=== PATIENT | male | born 1950 | race Caucasian/White ===

== ENCOUNTER → 2020-02-05 | Outpatient (CLI) | payer OTHER ==
[~2020-02-05] MED LIST: ACETYLCYST1000 MG/10 PO; ALLOPURINOL 10100 M1 PO; ASPIRIN EC81 M1 PO; ASPIRIN325 PO; EFFIENT10 MG PO; FENOFIBRATE160 MG PO; FISH OIL SOFTG1 EACH PO; GLUCOPHAGE500 MG PO; HCTZ PO; IMDUR 60 MG TAB60 M1 PO; JANUVIA100 MG PO; LIPITOR80 MG PO; LOTREL 5-40 MG1 EACH PO; MOBIC7.5 MG PO; NIACIN 100MG T100 M1 PO; NITROGLYCERIN0.4 MG SL; PLAVIX 75 MG TA75 MG PO; TOPROL XL50 MG PO
== END ==
LOC: SJCVCIMAG 07:58
DX: I70.203 Unspecified atherosclerosis of native arteries of extremities, bilateral legs (principal)

== ENCOUNTER → 2020-02-10 | Outpatient (CLI) | payer OTHER ==
[~2020-02-10] MED LIST changes: +BYSTOLIC10 MG PO; +CRESTOR40 MG PO; +DIAZEPAM 5 MG5 M1 PO; +DORYX MPC120 MG PO; +GLIPIZIDE 10 MG10 MG PO; +GLUCOTROL5 MG PO; +JARDIANCE10 MG PO; +KEFLEX500 M2 PO; +KRILL OIL 3501 EACH PO; +KRILL OIL500 MG PO; +LANTUS SUBQ; +LEVO-T25 MCG PO; +LOTREL 10-40 M1 EACH PO; +MULTIVITAMINS1 EAC7 PO; +PROTONIX40 M4 PO; +ZYLOPRIM300 MG PO
== END ==
LOC: SJCVC 13:15
DX: I65.23 Occlusion and stenosis of bilateral carotid arteries (principal); E11.51 Type 2 diabetes mellitus with diabetic peripheral angiopathy without gangrene; E78.00 Pure hypercholesterolemia, unspecified; R06.02 Shortness of breath; Z79.4 Long term (current) use of insulin

== ENCOUNTER → 2020-02-19 | Outpatient (CLI) | payer OTHER ==
[~2020-02-19] VITALS: Ht 180.3 cm; Wt 110.2 kg
[~2020-02-19] MED LIST changes: -DORYX MPC120 MG PO; -GLUCOTROL5 MG PO; -JARDIANCE10 MG PO; -KEFLEX500 M2 PO; -KRILL OIL500 MG PO; -LANTUS SUBQ; -LOTREL 10-40 M1 EACH PO; -ZYLOPRIM300 MG PO
[2020-02-19 08:27] VITALS: BP 157/86
[2020-02-19 08:34] LABS: ABSOLUTE NEUTROPHILS 3.4 thou/uL (1.4-8.2); BASOPHILS 0.5 % (0.0-2.0); HEMATOCRIT 51.7 % (42.0-52.0); HEMOGLOBIN 17.3 gm/dL (14.0-18.0); LYMPHOCYTES 32.3 % (24.0-44.0); MCH 30.5 pg (26.0-34.0); MCHC 33.5 g/dL (28.0-37.0); MCV 90.9 fL (80.0-100.0); MONOCYTES 9.3 % (1.0-8.0); PLATELET COUNT 253 thou/uL (150-400); POLYS 52.9 % (36.0-66.0); RBC 5.69 mil/uL (4.50-6.00); RDW 14.6 % (10.5-14.5); WBC 6.4 thou/uL (4.0-11.0)
[2020-02-19 08:59] LABS: CALCIUM 9.6 mg/dL (8.5-10.1); CREATININE 1.2 mg/dL (0.7-1.3); POTASSIUM 4.1 mmol/L (3.5-5.1)
--- NOTE | 2020-02-19 09:53 | EKG ---
[facility] [place] [address] ELECTROCARDIOGRAM REPORT Name: CARYN CALERO Room #: REG [facility]#: [id number] Admission: 02/19/20 Attend Phys: Jhon Jaquez MD, Discharge: Date of : 50 Report #: [id number] THIS REPORT FOR: cc: IMTIAZ - No family physician/PCP FAM - No family physician/PCP Bib Meeks MD [facility] THIS REPORT FOR: //name// [facility] Test Date: 2020-02-19 Test Time: 08:26:25 Pat Name: CARYN CALERO Department: Room: Gender: Packer Fuser: [facility] : 1950 Requested By: Jhon Jaquez Order Number: [id number] MD: Bib Meeks Measurements Intervals [place] Rate: 61 P: 50 MS: 172 QRS: 25 QRSD: 88 T: 19 QT: 402 QTc: 405 Interpretive Statements Sinus rhythm Normal tracing Compared to ECG 09/29/2010 08:30:57 No significant changes Electronically Signed On 02-19-2020 9:52:18 CDT by Bib Meeks [email or web address] <ELECTRONICALLY SIGNED> By: Bib Meeks MD, [facility] 02/19/20 0952 5 5 Bib Meeks MD, [facility] /EPI
[2020-02-19 13:21] LABS: ABSOLUTE NEUTROPHILS 5.4 thou/uL (1.4-8.2); BASOPHILS 0.7 % (0.0-2.0); EOSINOPHILS 0.6 % (0.0-3.0); HEMATOCRIT 53.8 % (42.0-52.0); LYMPHOCYTES 13.4 % (24.0-44.0); MCH 30.1 pg (26.0-34.0); MCHC 33.5 g/dL (28.0-37.0); MCV 89.9 fL (80.0-100.0); MONOCYTES 1.4 % (1.0-8.0); PLATELET COUNT 256 thou/uL (150-400); POLYS 83.9 % (36.0-66.0); RBC 5.98 mil/uL (4.50-6.00); RDW 14.7 % (10.5-14.5); WBC 6.5 thou/uL (4.0-11.0)
[2020-02-19 13:34] LABS: CALCIUM 9.9 mg/dL (8.5-10.1); CREATININE 1.1 mg/dL (0.7-1.3); POTASSIUM 4.3 mmol/L (3.5-5.1)
[2020-02-19 13:40] LABS: ALBUMIN 4.2 g/dL (3.4-5.0); TOTAL BILIRUBIN 0.9 mg/dL (<0.1-1.0); TOTAL PROTEIN 7.5 g/dL (6.4-8.2)
[2020-02-19 13:41] LABS: PROTIME 10.5 Seconds (9.3-11.4)
--- NOTE | 2020-02-19 14:00 | CATHLAB ---
[facility] [place] [address] INVASIVE PROCEDURE REPORT Name: GALILEACARYN MORALES Room #: REG GUSTAVO Miguel.#: [id number] Admission: 02/19/20 Attend Phys: Jhon Jaquez MD, Discharge: Date of : 50 Report #: [id number] THIS REPORT FOR: cc: FAM - No family physician/PCP FAM - No family physician/PCP Jhon Jaquez MD [facility] ~ APPROVED REPORT Study performed: 02/19/2020 11:23:34 Patient Details Patient Status: Out-Patient Room #: The patient is a 70 year-old male Event Personnel Jhon Jaquez Reactor Kettle Operator, April Barahona RN RN, Poonam Apodaca RTR, Sam Tucker Ja'net RTR Monitor Procedures Performed Art Access - R femoral artery* Left Heart Cath w/or w/o Coronaries [id number] [facility] [address] Initial Mod Sed Same Phys/QHP Gr5y [id number] 22083 Mod Sed Same Phys/QHP Ea 950318 Hemostasis w/ Mynx Indication Chest pain Procedure Narrative The patient was brought electively to the Cardiac Catheterization Laboratory and was prepped and draped in a sterile manner. A SHEATH BRITE-TIP 6F X 11CM ([id number]) sheath was inserted into the RFA^. Coronary angiography was performed using coronary diagnostic catheters. The right coronary system was accessed and visualized with a JR4 catheter. The left coronary system was accessed and visualized with a JL4 catheter. The left ventricle was accessed and visualized with a PIGTAIL catheter. Closure device was deployed with a Fr MYNXGRIP 6/7F [id number]. The patient tolerated the procedure well and there were no complications associated with the procedure. There was no hematoma. Intraoperative Conscious Sedation Sedation start time: 11:31 Case end Time: 12:05 Fentanyl 50 mcg Versed 1 mg [facility] [place] [address] INVASIVE PROCEDURE REPORT Name: CARYN CALERO Room #: REG [place]#: [id number] Admission: 02/19/20 Attend Phys: Jhon Jaquez, Discharge: Date of : 50 Report #: [id number] Fluoro Time: 1.30 minutes Dose: DAP 5227.60 cGycm2 676 mGy Contrast Type and Amount: Omnipaque 110 ml Hemodynamics The aortic pressure is 168/81 mmHg with a mean of 116 mmHg. The left ventricular pressure is 168/14 mmHg with a mean of mmHg. The left ventricular end diastolic pressure is 33 mmHg. PCI Technique Lesion Percutaneous coronary intervention was performed on the Superficial Femoral. Conclusion #1. Left main is exhibiting a 70% distal lesion as it extends into the and gives off the LAD and circumflex. The ostial left main is widely patent. #2 the proximal LAD is mildly diseased there is an eccentric lesion of 40% just off the left main and then mild diffuse disease this extends around the apex there is heavy proximal calcification. No other significant occlusive disease #3 circumflex OM proximal calcification nondominant mild irregularity however the ostial circumflex has an eccentric 70 to 80% lesion which extends into the distal left main lesion. #4 dominant right also heavy calcification with 30 to 40% irregularities and then there is a distal eccentric lesion approaching 70 to 75% with a preserved PDA. Recommendations and plan: Continue aggressive risk factor modification. We will have and obtain CV surgical consultation. Based on this significant left main lesion involving the ostium of the circumflex. Heavily calcified proximal vessels and preserved distal targets Patient will be best served with revascularization by bypass. We will continue with his current regimen. He has stable anginal symptoms. Recent peripheral stent placed today would presumably wait on coronary revascularization 2+ weeks. Would like to use 14 days of Plavix for the SFA stent. <ELECTRONICALLY SIGNED> By: Jhon Jaquez MD, FACC 02/19/20 1359 1359 1359 Jhon Jaquez MD, FACC /INF
[2020-02-19 15:24] LABS: URINE BILIRUBIN NEGATIVE (Negative); URINE BLOOD NEGATIVE (Negative); URINE CLARITY CLEAR; URINE COLOR YELLOW; URINE GLUCOSE-RANDOM* 2+ (Negative); URINE KETONES NEGATIVE (Negative); URINE LEUKOCYTES-REFLEX NEGATIVE (Negative); URINE NITRITE-REFLEX NEGATIVE (Negative); URINE PROTEIN (DIPSTICK) NEGATIVE (Negative); URINE UROBILINOGEN 0.2 E.U./dl (0.2-1.0)
--- NOTE | 2020-02-19 15:33 | 2DMMODE ---
[facility] [place] [address] 2 D/M-MODE ECHOCARDIOGRAM Name: GALILEACARYN MORALES Room #: REG GUSTAVO MiguelYuridia#: [id number] Admission: 02/19/20 Attend Phys: Jhon Jaquez MD, Discharge: Date of : 50 Report #: [id number] THIS REPORT FOR: cc: FAM - No family physician/PCP FAM - No family physician/PCP Bib Meeks MD [facility] ~ APPROVED REPORT Study performed: 02/19/2020 14:36:37 EXAM: Comprehensive 2D, Doppler, and color-flow Echocardiogram Patient Location: Out-Patient Room #: CVL Status: routine BSA: 2.30 HR: 106 bpm Rhythm: NSR Other Information Study Quality: Fair-s/p heart cath. Technically limited study due to obesity, lung and flat on back. Indications Pre-Op. CAD. Hx: Stents, HTN, HLP, DM, tobacco abuse. 2D Dimensions IVSd: 11.07 (7-11mm) LVOT Diam: 20.15 (18-24mm) LVDd: 45.79 mm PWd: 9.91 (7-11mm) LVDs: 34.11 (25-40mm) Aortic Root: 34.19 mm Volumes Left Atrial Volume (Systole) Single Plane 4CH: 64.09 mL Single Plane 2CH: 66.88 mL LA ESV Index: 30.00 mL/m2 Aortic Valve AoV Peak J Carlos.: 1.28 m/s AO Peak Gr.: 6.51 mmHg LVOT Max P.31 mmHg LVOT Max V: 0.91 m/s [facility] [address] [place] [address] 2 D/M-MODE ECHOCARDIOGRAM Name: CARYN CALERO Room #: REG [facility]#: [id number] Admission: 02/19/20 Attend Phys: Jhon Jaquez, Discharge: Date of : 50 Report #: [id number] Vmax: 2.27 cm2 Pulmonary Valve PV Peak J Carlos.: 1.20 m/s PV Peak Gr.: 5.74 mmHg Tricuspid Valve RAP Estimate: 5.00 mmHg Left Ventricle The left ventricle is normal size. There is normal LV segmental wall motion. There is normal left ventricular wall thickness. Left ventricular systolic function is normal. LVEF is 65%. This study is not technically sufficient to allow evaluation of the LV diastolic function. Right Ventricle Right ventricle is not well visualized. The right ventricular systolic function is normal. Atria The left atrium size is normal. The right atrium size is normal. Aortic Valve The aortic valve is normal in structure. No aortic regurgitation is present. There is no aortic valvular stenosis. Mitral Valve The mitral valve is normal in structure. There is no mitral valve regurgitation noted. No evidence of mitral valve stenosis. Tricuspid Valve The tricuspid valve is not well visualized. There is no tricuspid valve regurgitation noted. Unable to assess PA pressure. Pulmonic Valve Pulmonic valve is not well visualized. Great Vessels The aortic root is normal in size. IVC is normal in size and collapses >50% with inspiration. Pericardium There is no pericardial effusion. <Conclusion> [facility] [address] [place] [address] 2 D/M-MODE ECHOCARDIOGRAM Name: CARYN CALERO Room #: REG [facility]#: [id number] Admission: 02/19/20 Attend Phys: Jhon Jaquez, Discharge: Date of : 50 Report #: [id number] Technically limited study Left ventricular systolic function is normal. There is normal LV segmental wall motion. LVEF is 65%. The aortic valve is normal in structure. No aortic regurgitation or stenosis. The mitral valve is normal in structure. No mitral valve regurgitation Unable to assess pulmonay artery pressure. There is no pericardial effusion. <ELECTRONICALLY SIGNED> By: Bib Meeks MD, FACC 02/19/201531 31 31 Bib Meeks MD, FACC /INF
[2020-02-19 23:07] LABS: GLYCOHEMOGLOBIN (HGB A1C) 6.4 % (4.8-5.6)
--- NOTE | 2020-02-21 15:35 | HC ---
[facility] [place] [address] CONSULTATION Name: CARYN CALERO Room #: REG GUSTAVO MiguelYuridia#: [id number] Admission: 02/19/20 Attend Phys: Jhon Jaquez MD, Discharge: Date of : 50 Report #: [id number] THIS REPORT FOR: cc: IMTIAZ - No family physician/PCP IMTIAZ - No family physician/PCP Caryn Alejandro MD ~ CC: [facility] physician/PCP Jhon Jaquez DATE OF SERVICE: 02/19/2020 We were asked by Dr. Jaquez to see the patient. HISTORY OF PRESENT ILLNESS: The patient is a 70-year-old with exertional shortness of breath. The patient also has some lower extremity claudication. Cardiac catheterization today demonstrates left main and 3-vessel coronary artery disease. There is a 70% left main stenosis along with 30% LAD, 80% circumflex and 70% right coronary artery stenosis. The patient also had a stent placed in a left superficial femoral artery for an 80% narrowing. The patient has been started on Plavix for this. PAST MEDICAL HISTORY: Significant for diabetes mellitus, hypertension, and elevated cholesterol. The patient is also a former smoker. HOME MEDICATIONS: Include allopurinol, Lotrel, aspirin, Bystolic, Valium, ____, glipizide, isosorbide, Krill oil, levothyroxine, multivitamins, Protonix, Crestor, and nitroglycerin. ALLERGIES: ADHESIVE CAUSES AN ITCH AND IODINE CAUSES HIVES. FAMILY HISTORY: Mother of heart failure in her 90s. Father of a stroke in his 70s. 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 REVIEW OF SYSTEMS: GENERAL: No problems with fever, generalized fatigue. HEENT: EYES: Wears glasses. Denies headache, hearing issues. No sinus problems. PULMONARY: Short of breath on exertion. CARDIAC: Denies palpitations or angina. SKIN: No rash or infection. ENDOCRINE: No goiter, no tremor. [facility] [address] [place] [address] CONSULTATION Name: GALILEACARYN Room #: REG [facility].#: [id number] Admission: 02/19/20 Attend Phys: Jhon Jaquez MD, Discharge: Date of : 50 Report #: [id number] GASTROINTESTINAL: No nausea, vomiting, diarrhea, or blood. GENITOURINARY: No urgency, frequency, or blood. NEUROLOGIC: No motor or sensory dysfunction. PSYCHIATRIC: No depression, no anxiety. MUSCULOSKELETAL: Does have scattered joint pain; specifically in the hips, right worse than left. IMMUNOLOGIC: No lupoid rash. No rheumatoid arthritis issues. PHYSICAL EXAMINATION: CONSTITUTIONAL: The patient is lying in bed after cardiac cath, seems comfortable. VITAL SIGNS: Blood pressure 162/89, heart rate 100. HEENT: No scleral icterus, no arcus. NECK: No mass, no bruit. CHEST: Clear to auscultation. HEART: Rhythm regular, no murmur. Somewhat barrel chested. ABDOMEN: Soft, no mass, no tenderness. EXTREMITIES: No clubbing, cyanosis or edema; 1+ posterior tibial pulse bilaterally. No obvious saphenous vein issues. NEUROLOGIC: No motor or sensory dysfunction. MUSCULOSKELETAL: No obvious bone or joint asymmetry or deformity. ASSESSMENT: The patient has a left main and 3-vessel coronary artery disease with diabetes mellitus. We have recommended coronary artery bypass surgery. Risks and details of this were discussed. Options and alternatives were reviewed. Risks include but are not limited to bleeding, infection, anesthesia risks, heart problems, lung problems, stroke and . The patient understands all of this and wishes to proceed. We will discuss the Plavix with Dr. Chin, but we will schedule surgery when he is comfortable discontinuing that medication. Thank you for the consult. <ELECTRONICALLY SIGNED> By: Caryn Alejandro MD 02/21/20 1535 1344 1918 Caryn Alejandro MD /nt
== END | disposition home or self-care (01) ==
LOC: CATH 07:52
PROVIDERS: Internal Medicine Cardiovascular Disease; Surgery Vascular Surgery
DX: R07.9 Chest pain, unspecified (principal); Z91.041 Radiographic dye allergy status; I25.10 Atherosclerotic heart disease of native coronary artery without angina pectoris; I70.212 Atherosclerosis of native arteries of extremities with intermittent claudication, left leg; I70.1 Atherosclerosis of renal artery; I10 Essential (primary) hypertension; I65.23 Occlusion and stenosis of bilateral carotid arteries; E78.5 Hyperlipidemia, unspecified; E11.9 Type 2 diabetes mellitus without complications; Z98.890 Other specified postprocedural states; Z79.899 Other long term (current) drug therapy; Z79.4 Long term (current) use of insulin

== ENCOUNTER → 2020-03-11 | Outpatient (CLI) | payer OTHER ==
[~2020-03-11] VITALS: Ht 180.3 cm; Wt 108.9 kg
[~2020-03-11] MED LIST changes: +BENICAR20 MG PO; +DORYX MPC120 MG PO; +FERREX 150 PLU1 EAC1 PO; +GLUCOTROL5 MG PO; +JARDIANCE10 MG PO; +KEFLEX500 M2 PO; +KRILL OIL500 MG PO; +LANTUS SUBQ; +LOTREL 10-40 M1 EACH PO; +PACERONE 200 M200 M1 PO; +ZYLOPRIM300 MG PO
== END ==
LOC: LAB 10:30 → OR 03-12 09:44 → EDSTATUS 03-12 15:14 → PRE 03-12 15:35 → EDSTATUS 03-26 11:24 → PRE 03-26 11:44
PROVIDERS: ATTEND Surgery Vascular Surgery
DX: I25.10 Atherosclerotic heart disease of native coronary artery without angina pectoris (principal)

== ENCOUNTER → 2020-03-11 | Outpatient (CLI) | payer OTHER ==
[~2020-03-11] MED LIST changes: -BENICAR20 MG PO; -DORYX MPC120 MG PO; -FERREX 150 PLU1 EAC1 PO; -PACERONE 200 M200 M1 PO
== END ==
LOC: SJCVCIMAG 11:34
DX: I70.202 Unspecified atherosclerosis of native arteries of extremities, left leg (principal); Z95.820 Peripheral vascular angioplasty status with implants and grafts; Z87.891 Personal history of nicotine dependence

== ENCOUNTER 2020-04-15 10:47 | Inpatient (IN) | payer OTHER ==
[~2020-04-15] VITALS: Ht 180.3 cm; Wt 112.0 kg
[~2020-04-15 10:47] MED LIST changes: +DORYX MPC120 MG PO
[2020-04-15 11:40] LABS: ABSOLUTE NEUTROPHILS 3.8 thou/uL (1.4-8.2); BASOPHILS 1.1 % (0.0-2.0); EOSINOPHILS 4.1 % (0.0-3.0); HEMATOCRIT 51.8 % (42.0-52.0); HEMOGLOBIN 17.4 gm/dL (14.0-18.0); LYMPHOCYTES 31.1 % (24.0-44.0); MCH 30.7 pg (26.0-34.0); MCHC 33.7 g/dL (28.0-37.0); MCV 91.2 fL (80.0-100.0); MONOCYTES 8.7 % (1.0-8.0); PLATELET COUNT 242 thou/uL (150-400); RBC 5.68 mil/uL (4.50-6.00); RDW 14.2 % (10.5-14.5)
[2020-04-15 11:51] LABS: APTT 32.7 Seconds (24.5-32.8); PROTIME 10.6 Seconds (9.3-11.4)
[2020-04-15 11:53] LABS: ALBUMIN 4.1 g/dL (3.4-5.0); CALCIUM 9.2 mg/dL (8.5-10.1); CREATININE 1.3 mg/dL (0.7-1.3); POTASSIUM 4.5 mmol/L (3.5-5.1); TOTAL BILIRUBIN 0.8 mg/dL (<0.1-1.0)
[2020-04-15 12:47] LABS: URINE BILIRUBIN NEGATIVE (Negative); URINE BLOOD NEGATIVE (Negative); URINE CLARITY CLEAR; URINE COLOR YELLOW; URINE GLUCOSE-RANDOM* 3+ (Negative); URINE KETONES NEGATIVE (Negative); URINE LEUKOCYTES-REFLEX NEGATIVE (Negative); URINE NITRITE-REFLEX NEGATIVE (Negative); URINE PROTEIN (DIPSTICK) NEGATIVE (Negative); URINE UROBILINOGEN 0.2 E.U./dl (0.2-1.0)
[2020-04-16 00:07] LABS: GLYCOHEMOGLOBIN (HGB A1C) 6.4 % (4.8-5.6)
--- NOTE | 2020-04-16 07:59 | EKG ---
[facility] [place] [address] ELECTROCARDIOGRAM REPORT Name: CARYN CALERO Room #: PRE IN M..#: [id number] Admission: Attend Phys: Caryn Alejandro MD Discharge: Date of : 50 Report #: [id number] THIS REPORT FOR: cc: BRENNAN FARNSWORTH Physician not on staff Bib Meeks MD [facility] ~ THIS REPORT FOR: //name// [facility] Test Date: 2020-04-15 Test Time: 11:37:28 Pat Name: CARYN CALERO Department: Room: Gender: M Wine Specialist: TATIANA : 1950 Requested By: Caryn Alejandro Order Number: [id number] MD: Bib Meeks Measurements Intervals [place] Rate: 58 P: 72 [place]: 167 QRS: 49 QRSD: 96 T: 38 QT: 420 QTc: 413 Interpretive Statements Sinus bradycardia Otherwise normal tracing Compared to ECG 02/19/2020 08:26:25 No significant changes Electronically Signed On 04-16-2020 7:58:05 CDT by Bib Meeks [email or web address] <ELECTRONICALLY SIGNED> By: Bib Meeks MD, [facility] 04/16/20 0758 1137 113 Bib Meeks MD, [facility] /EPI
[2020-04-24] VITALS (29 sets, daily range): BP systolic 75–161; BP diastolic 43–83
[2020-04-24 13:08] LABS: HEMATOCRIT 33.6 % (42.0-52.0); HEMOGLOBIN 11.4 gm/dL (14.0-18.0); MCH 30.7 pg (26.0-34.0); MCHC 33.9 g/dL (28.0-37.0); MCV 90.6 fL (80.0-100.0); RBC 3.71 mil/uL (4.50-6.00); RDW 14.1 % (10.5-14.5)
[2020-04-24 13:21] LABS: APTT 32.9 Seconds (24.5-32.8); INR 1.6
[2020-04-24 13:51] LABS: POC BE -3 mmol/L (-2.0 to +3.0); POC CA IONIZED 4.7 mg/dL (4.5-5.3); POC GLUCOSE 130 mg/dL (70-99); POC HCO3 22.6 mmol/L (22.0-26.0); POC HEMOGLOBIN 13.6 g/dL (14.0-18.0); POC POTASSIUM 4.7 mmol/L (3.5-5.1); POC SODIUM 138 mmol/L (136-145); POC pCO2 42.4 mmHg (35.0-45.0); POC pH 7.334 (7.360-7.450)
[2020-04-24 13:51] LABS: POC BE -1 mmol/L (-2.0 to +3.0); POC CA IONIZED 4.3 mg/dL (4.5-5.3); POC GLUCOSE 137 mg/dL (70-99); POC HCO3 24.2 mmol/L (22.0-26.0); POC HEMOGLOBIN 11.6 g/dL (14.0-18.0); POC SODIUM 138 mmol/L (136-145); POC pCO2 42.5 mmHg (35.0-45.0); POC pH 7.364 (7.360-7.450)
[2020-04-24 13:51] LABS: POC BE -1 mmol/L (-2.0 to +3.0); POC CA IONIZED 4.3 mg/dL (4.5-5.3); POC GLUCOSE 170 mg/dL (70-99); POC HCO3 23.8 mmol/L (22.0-26.0); POC HEMOGLOBIN 10.2 g/dL (14.0-18.0); POC POTASSIUM 5.8 mmol/L (3.5-5.1); POC SODIUM 136 mmol/L (136-145); POC pCO2 41.3 mmHg (35.0-45.0); POC pH 7.369 (7.360-7.450)
[2020-04-24 13:51] LABS: POC BE -3 mmol/L (-2.0 to +3.0); POC CA IONIZED 4.9 mg/dL (4.5-5.3); POC GLUCOSE 147 mg/dL (70-99); POC HCO3 22.3 mmol/L (22.0-26.0); POC HEMOGLOBIN 14.3 g/dL (14.0-18.0); POC POTASSIUM 4.4 mmol/L (3.5-5.1); POC SODIUM 139 mmol/L (136-145); POC pCO2 38.1 mmHg (35.0-45.0); POC pH 7.376 (7.360-7.450)
[2020-04-24 13:52] LABS: POC BE -3 mmol/L (-2.0 to +3.0); POC CA IONIZED 4.2 mg/dL (4.5-5.3); POC GLUCOSE 147 mg/dL (70-99); POC HCO3 22.5 mmol/L (22.0-26.0); POC HEMOGLOBIN 10.9 g/dL (14.0-18.0); POC POTASSIUM 5.3 mmol/L (3.5-5.1); POC SODIUM 136 mmol/L (136-145); POC pCO2 37.5 mmHg (35.0-45.0); POC pH 7.386 (7.360-7.450)
[2020-04-24 13:52] LABS: POC BE -4 mmol/L (-2.0 to +3.0); POC CA IONIZED 4.8 mg/dL (4.5-5.3); POC GLUCOSE 162 mg/dL (70-99); POC HCO3 21.5 mmol/L (22.0-26.0); POC HEMOGLOBIN 10.9 g/dL (14.0-18.0); POC POTASSIUM 4.9 mmol/L (3.5-5.1); POC SODIUM 139 mmol/L (136-145); POC pCO2 37.4 mmHg (35.0-45.0); POC pH 7.369 (7.360-7.450)
[2020-04-24 13:52] LABS: POC BE -6 mmol/L (-2.0 to +3.0); POC CA IONIZED 4.7 mg/dL (4.5-5.3); POC GLUCOSE 137 mg/dL (70-99); POC HCO3 19.7 mmol/L (22.0-26.0); POC HEMOGLOBIN 11.2 g/dL (14.0-18.0); POC POTASSIUM 4.2 mmol/L (3.5-5.1); POC SODIUM 139 mmol/L (136-145); POC pCO2 36.8 mmHg (35.0-45.0); POC pH 7.338 (7.360-7.450)
[2020-04-24 14:31] LABS: BE(vivo) -6.1 mmol/L (-2 to +3); HCO3 19.4 mmol/L (22.0-26.0); PCO2 38.3 mmHg (35.0-45.0); PO2 63.2 mmHg (80.0-100.0); pH 7.323 (7.360-7.450); sO2 90.7 % (92.0-98.0)
[2020-04-24 14:38] LABS: HEMATOCRIT 37.1 % (42.0-52.0); HEMOGLOBIN 12.3 gm/dL (14.0-18.0); MCH 30.3 pg (26.0-34.0); MCHC 33.1 g/dL (28.0-37.0); MCV 91.3 fL (80.0-100.0); RBC 4.06 mil/uL (4.50-6.00); RDW 13.9 % (10.5-14.5); WBC 12.2 thou/uL (4.0-11.0)
[2020-04-24 14:50] LABS: CALCIUM 7.5 mg/dL (8.5-10.1); CREATININE 1.4 mg/dL (0.7-1.3); MAGNESIUM 2.4 mg/dL (1.8-2.4); POTASSIUM 4.3 mmol/L (3.5-5.1)
[2020-04-24 14:53] LABS: APTT 28.9 Seconds (24.5-32.8); INR 1.2
--- NOTE | 2020-04-24 15:00 | NUR ---
ALBUMIN HUNG FOR BP IN THE 90'S, EKG DONE AT BEDSIDE AT 1455, BP UP AND CARDENE STARTED BUT TURNED OFF BP BACK INTO THE 90'S. ALBUMIN RATE INCREASED.
--- NOTE | 2020-04-24 15:39 | NUR ---
70 YEAR OLD MALE ADMITTED INTO ICU ROOM 248 POST CABG X5, ACCOMPANIED BY OR CREW AND DR PIKE, AND DR BOND. ATTACHED TO VILGIANT MONITOR AND LICENSING REPRESENTATIVE. PLACED ON VENT. CHEST TUBES ATTACHED TO CONTINOUS SUCTION, WITH LESS THAN 15 ML OF DRAINAGE NOTED. SWAN AT 57CM ROBERT. OG AT 47 AT THE LIP, PLACEMENT VARIFIED BY XRAY AND AUSCULATION. ETT 8.0 23CM AT THE LIP. GALINA HUGGER APPLIED. ASSESSMENT COMPLETED.
--- NOTE | 2020-04-24 16:00 | NUR ---
SECOND ALBUMIN INFUSED AND BP IMPROVED. PATIENT RESPONSIVE AND FOLLOWING SIMPLE COMMANDS. CALLED HIS LEONARDO AT 1550, AND UPDATED HER TO HIS STATUS AND POC, HAS CODE TO CALL IN FOR INFORMATION. O2 SAT IMPROVED AND CI GREATER THAN 2.0.
[2020-04-24 18:49] LABS: CALCIUM 7.3 mg/dL (8.5-10.1); CREATININE 1.2 mg/dL (0.7-1.3); MAGNESIUM 2.2 mg/dL (1.8-2.4); POTASSIUM 4.3 mmol/L (3.5-5.1)
--- NOTE | 2020-04-24 19:00 | NUR ---
PATIENT PROGRESSING TOWARDS OUTCOME GOALS EVIDENT BY AWAKE AND FOLLOWING COMMMANDS, CALM AND COOPERATIVE. MONITOR NSR WITH RARE PVC NOTED. CI GREATER THAN 2.O, THIRD ALBUMIN INFUSING BP IN THE 90'S. CHEST TUBE DRAINAGE LESS THAN 30 ML/HR. O2 SAT IN THE UPPER 90'S. GUEVARA PATENT. NM DRAINAGE FROM OG TUBE. AMIODARONE INFUSING, DR BOND IN AT [address] TAYLOR IN AT 1720, UPDATED TO STATUS.
[2020-04-24 19:05] LABS: BE(vivo) -6.6 mmol/L (-2 to +3); HCO3 18.2 mmol/L (22.0-26.0); PCO2 34.2 mmHg (35.0-45.0); pH 7.345 (7.360-7.450); sO2 97.7 % (92.0-98.0)
[2020-04-24 20:17] LABS: BE(vivo) -6.4 mmol/L (-2 to +3); HCO3 18.2 mmol/L (22.0-26.0); PCO2 33.4 mmHg (35.0-45.0); PO2 64.7 mmHg (80.0-100.0); pH 7.354 (7.360-7.450)
[2020-04-25] VITALS (26 sets, daily range): BP systolic 111–143; BP diastolic 52–81
[2020-04-25 05:37] LABS: HEMATOCRIT 34.5 % (42.0-52.0); HEMOGLOBIN 11.7 gm/dL (14.0-18.0); MCH 30.9 pg (26.0-34.0); MCV 90.8 fL (80.0-100.0); RBC 3.8 mil/uL (4.50-6.00); RDW 14.2 % (10.5-14.5); WBC 7.4 thou/uL (4.0-11.0)
[2020-04-25 05:41] LABS: CALCIUM 7.6 mg/dL (8.5-10.1); CREATININE 1.1 mg/dL (0.7-1.3); MAGNESIUM 2.3 mg/dL (1.8-2.4); POTASSIUM 3.9 mmol/L (3.5-5.1)
--- NOTE | 2020-04-25 05:44 | NUR ---
Pt is A/O x 4, he AGUIRRE's, has rested at times through the night, and has been treated effectively with prn pain medication. His hemodynamics have been stable, with mild hypertension noted, (cardene is off at this time). Pt was extubated last night at 2030, and has been titrated down to 8 L/m per Hi Lázaro, (from 60% on the face shield), sats are 95% and above, no SOA, taking good deep breaths/coughing, and a respiratory rate of 12-14 bpm. Chest tube sites are intact, 310 ml's total of mediastinal drainage since surgery and 120 ml's of pleural. Pt is taking PO fluids well, no C/O nausea voiced. Mclaughlin cathter is patent, draining 1100 ml's of dark yellow urine. Pt started an insulin infusion, at approx 2100, currently at 6 units/hr, (at that rate since 0) and last BGL was 128. Pt is progressing toward POC goals. The bed is in the low/locked position, the call light is within reach, the siderails are up x 4, and he will be transferred to the recliner.
--- NOTE | 2020-04-25 08:13 | NUR ---
ASSUMED CARE FROM NIGHT NURSE AT O7OO. PATIENT ASSISTED TO CHAIR WITHOUT INCIDENT. HYDROCODONE GIVEN FOR PAIN MANAGEMENT. ARTERIAL LINE BP ELEVATED, CARDENE RESTARTED. O2 TAPPERED TO 4L/HFNC. OT IN TO WORK WITH PATIENT. INSULIN DRIP CONTINUES. CHEST TUBE DRAINAGE NOTED WITH POSITION CHANGE, SEROUS SANG IN APPEARANCE. PATIENT UPDATED TO THE POC. WILL CONTINUE TO MONITOR.
--- NOTE | 2020-04-25 08:30 | NUR ---
SPOKE WITH LEONARDO, UPDATED TO THE POC AND STATUS. PATIENT THEN SPOKE WITH .
--- NOTE | 2020-04-25 09:33 | EKG ---
[facility] [place] [address] ELECTROCARDIOGRAM REPORT Name: CARYN CALERO Room #: 248-P ADM IN M.R.#: [id number] Admission: 04/24/20 Attend Phys: Caryn Alejandro MD Discharge: Date of : 50 Report #: [id number] THIS REPORT FOR: cc: BRENNAN FARNSWORTH Physician not on staff Nick Castanon MD ~ THIS REPORT FOR: //name// [facility] Test Date: 2020-04-24 Test Time: 14:55:52 Pat Name: CARYN CALERO Department: Room: 248 Gender: M Button Cutter: Cecilio DUVAL : 1950 Requested By: Gonsalo Brandon Order Number: [id number] MD: Nick Castanon Measurements Intervals [place] Rate: 92 P: 74 [place]: 207 QRS: 81 QRSD: 93 T: 41 QT: 379 QTc: 469 Interpretive Statements Sinus rhythm Borderline prolonged NJ interval Borderline right axis deviation Borderline low voltage, extremity leads Compared to ECG 04/15/2020 11:37:28 Sinus bradycardia no longer present Electronically Signed On 04-25-2020 9:31:13 CDT by Nick Castanon [email or web address] <ELECTRONICALLY SIGNED> By: Nick Castanon MD 04/25/20 0931 1455 1455 Nick Castanon MD /EPI
--- NOTE | 2020-04-25 09:44 | EKG ---
[facility] [place] [address] ELECTROCARDIOGRAM REPORT Name: MATEUSSOTEROCARYN PEARSON Room #: 248-P ADM IN M.R.#: [id number] Admission: 04/24/20 Attend Phys: Caryn Alejandro MD Discharge: Date of : 50 Report #: [id number] THIS REPORT FOR: cc: BRENNAN FARNSWORTH Physician not on staff Nick Castanon MD ~ THIS REPORT FOR: //name// [facility] Test Date: 2020-04-25 Test Time: 07:33:04 Pat Name: CARYN CALERO Department: Room: 248 P Gender: M Technical Clerk: Cecilio DUVAL : 1950 Requested By: Gonsalo Brandon Order Number: [id number] MD: Nick Castanon Measurements Intervals [place] Rate: 75 P: 66 [place]: 186 QRS: 39 QRSD: 89 T: 30 QT: 397 QTc: 444 Interpretive Statements Sinus rhythm Inferior infarct, old Compared to ECG 04/15/2020 11:37:28 Myocardial infarct finding now present Sinus bradycardia no longer present Electronically Signed On 04-25-2020 9:41:59 CDT by Nick Castanon [email or web address] <ELECTRONICALLY SIGNED> By: Nick Castanon MD 04/25/20 0941 0733 0733 Nick Castanon MD /EPI
--- NOTE | 2020-04-25 12:00 | NUR ---
PATIENT UP IN THE CHAIR UNTIL 1100 AND RETURNED TO BED. SWAN FERNANDA DC'D AND INTRODUCER REMAINS IN PLACE. INSULIN, CARDENE, AMINODARONE AND MAINTANCE FLUIDS DC'D PER ORDER. PATIENT TAKING PO FLUIDS WITHOUT NAUSEA OR EMESIS. URINE OUTPUT GREATER THAN 50 ML/HR. LEFT LEG UNWRAPPED AND SCD APPLIED. PACER DISCONNECTED AND PACER WIRES CAPPED. WILL CONTINUE TO MONITOR.
--- NOTE | 2020-04-25 15:36 | O ---
[facility] [place] [address] OPERATIVE REPORT Name: CARNY CALERO Room #: 248-P ADM IN M.R.#: [id number] Admission: 04/24/20 Attend Phys: Caryn Alejandro MD Discharge: Date of : 50 Report #: [id number] THIS REPORT FOR: cc: BRENNAN FARNSWORTH Physician not on staff Caryn Alejandro MD ~ CC: BRENNAN Alejandro Physician staff DATE OF SERVICE: 04/24/2020 PREOPERATIVE DIAGNOSIS: Coronary artery disease. POSTOPERATIVE DIAGNOSIS: Coronary artery disease. OPERATION: Coronary artery bypass x 5 including left internal mammary artery to left anterior descending artery, saphenous vein to diagonal and marginal arteries and saphenous vein to posterior descending and posterolateral branch of the right coronary and endoscopic harvest, left greater saphenous vein. SURGEON: Caryn Alejandro MD PLATEN DRIER OPERATOR: ISABEL Stanley ANESTHESIA: General. INDICATIONS: The patient is a 70-year-old with coronary artery disease. Catheterization demonstrates left main and right coronary stenoses. Left ventricular function is satisfactory. This was found on calcium score. The patient had denied symptoms of angina. FINDINGS AND TECHNIQUE: After general anesthesia was established, saphenous vein was harvested with an endoscopic approach and prepared for use as a conduit. Exposure was obtained through median sternotomy. Left internal mammary artery was harvested from chest wall. Pericardial well was made. Cannulation sutures were placed. Heparin was given. Aorta was cannulated. Right atrium was cannulated. Cardioplegia needle was positioned in the aortic root. Retrograde cardioplegic catheter was placed in the coronary sinus. Cardiopulmonary bypass was established. The aorta was cross clamped. Antegrade and retrograde cardioplegia were given. Ice was poured in the pericardial well. The heart was stopped. During electromechanical arrest, the distal anastomoses were performed and [facility] [address] [place] [address] OPERATIVE REPORT Name: CARYN CALERO Room #: 248-P [facility] IN M.R.#: [id number] Admission: 04/24/20 Attend Phys: Caryn Alejandro MD Discharge: Date of : 50 Report #: [id number] end-to-side anastomosis was made between vein and the large posterolateral branch of the right coronary. Cold cardioplegia was given. The same segment of vein was sewn in mhpd-bu-opts fashion to the posterior descending artery. Cold cardioplegia was given. A separate segment of vein was sewn in end-to-side fashion to the large distal marginal artery. Cold cardioplegia was given. I looked at the more proximal marginal, but thought it was too short and small for satisfactory bypass. The same segment of vein was sewn in dhvx-cu-dsve fashion to the large diagonal artery. Cold cardioplegia was given. Left internal mammary artery was sewn in end-to-side fashion to the left anterior descending artery. Patency of this vessel was checked with the temperature technique and the Doppler. Cold cardioplegia was given. Two proximal anastomoses were performed and these were complete, warm retrograde cardioplegia was given followed by warm continuous blood to the coronary sinus. When this infusion was complete, the crossclamp was removed, de-airing maneuvers were performed. The anastomoses were inspected and found to be satisfactory. As the patient warmed, nice cardiac activity resumed, chest tubes and pacing wires were placed, a marker was placed around the proximal anastomoses. When the patient was warm, he was weaned from cardiopulmonary bypass. Venous cannula was removed. Protamine was given, the aortic cannula was removed. Flows were measured in the bypass graft. When hemostasis was satisfactory, chest was irrigated with antibiotic solution and closed in the usual fashion. The patient was taken to the Intensive Care Unit in good condition having tolerated the procedure well. All counts reported as correct. <ELECTRONICALLY SIGNED> By: Caryn Alejandro MD 04/25/20 1536 09 21 Caryn Alejandro MD /nt
--- NOTE | 2020-04-25 16:32 | NUR ---
PATIENT PROGRESSING TOWARDS OUTCOME GOAL. UP TO THE CHAIR AT 1500 WITH PT AND THIS NURES ASSISTING. GOOD DEEP COUGH. STERNAL PAIN NOTED TO INCREASE WITH COUGHING. DR BOND IN AND INFORMED OF ELEVATED BP AFTER PAIN MANAGEMENT ADDRESSED. ORDERS NOTED AND AMILODAPINE ADMINISTERED PER ORDER. SPOKE WITH LEONARDO AND UPDATED HER. MEDIASTINAL CHEST TUBE DRAINAGE 90ML IN PAST 4 HOURS, WILL CONTINUE TO MONITOR TO DC.
--- NOTE | 2020-04-25 19:00 | NUR ---
PATIENT STATES THAT HE HEARS US TALKING ABOUT HIM AND BELIEVES THAT WE ARE OUT TO GET HIM. REASSURANCE GIVEN. PATIENT ORIENTED TO PERSON, PLACE AND SITUATION. CHEST TUBES DRAINING GREATER THAN 20 ML/HR. HAS BEEN ON PLAVIX UNTIL A WEEK PRIOR TO SURGERY FOR STENT IN LEFT LEG. WILL CONTINUE TO MONITOR.
[2020-04-26] VITALS (23 sets, daily range): BP systolic 96–168; BP diastolic 49–87
--- NOTE | 2020-04-26 00:08 | NUR ---
ASSUMED CARE OF PT AT 1900. PT ALERT AND ABLE TO ANSWER ORIENTANTION QUESTIONS TO PERSON, PLACE AND SITUATION CORRECTLY. PT HAVING PERIODS OF CONFUSION, BUT REDIRECTABLE. AT 2315 PT AWOKE AND PULLED OUT RIGHT IJ INTRODUCER. PT STATED "I FORGOT I HAD THAT IN MY NECK" RN HELD PRESSURE IN NECK AND BLEEDING WAS NOTED TO STOP. PT ONLY BLED BRIEFLY. WILL CONTINUE TO MONITOR.
[2020-04-26 05:39] LABS: BE(vivo) -3.6 mmol/L (-2 to +3); HCO3 19.3 mmol/L (22.0-26.0); PCO2 28.6 mmHg (35.0-45.0); PO2 57.8 mmHg (80.0-100.0); pH 7.447 (7.360-7.450); sO2 91.6 % (92.0-98.0)
[2020-04-26 05:55] LABS: HEMATOCRIT 33.9 % (42.0-52.0); HEMOGLOBIN 11.3 gm/dL (14.0-18.0); MCH 30.4 pg (26.0-34.0); MCHC 33.4 g/dL (28.0-37.0); MCV 91.1 fL (80.0-100.0); RBC 3.72 mil/uL (4.50-6.00); RDW 14.3 % (10.5-14.5); WBC 12.5 thou/uL (4.0-11.0)
[2020-04-26 05:57] LABS: CALCIUM 7.9 mg/dL (8.5-10.1); CREATININE 1.3 mg/dL (0.7-1.3); POTASSIUM 4.4 mmol/L (3.5-5.1)
--- NOTE | 2020-04-26 09:00 | NUR ---
ASSUMED CARE OF PATIENT FROM THE STAFF CONSULTANT, PATIENT RESTLESS, SCOOTING DOWN IN THE BED. ORIENTED TO PERSON ONLY, STATES THAT HE FEELS LIKE WE THE STAFF ARE OUT TO GET HIM, ATTEMPTED TO REORIENT TO PLACE AND SITUATION. REPOSITIONED IN BED AND IS NOW DOZING, HE HAS NOT SLEPT SINCE SURGERY 04/24. ASSESSMENT COMPLETED. REASSURANCE GIVEN. WILL CONTINUE TO MONITOR.
--- NOTE | 2020-04-26 10:15 | NUR ---
PATIENT AWOKE AT ANY 0925, RESTLESS AND SCOOTING DOWM IN BED. PATIENT REMAINS ORIENTED TO PERSON ONLY, ATTEMPTED TO REORIENTATE TO TIME, PLACE AND SITUATION, STILL FEELS THAT WE ARE OUT TO GET HIM, REASSURANCE GIVEN, GIVEN OPPORTUNITY TO SPEAK TO HIS VIA PHONE, UPDATED TO THE SITUATION. CALMER AFTER SPEAKING WITH HER. MEDIALSTINAL CHEST TUBE HAVE LESS THAN 20ML/HR OF DRAINAGE FOR SEVERAL HOURS. TUBES PULLED, PATIENT COOPERATIVE AND FOLLOWED SIMPLE DIRECTIONS DURING REMOVAL OF TUBES. DRIFTED OFF TO SLEEP.
--- NOTE | 2020-04-26 11:29 | NUR ---
LEONARDO CALLED AND UPDATED TO THE POC AND HIS STATUS.
--- NOTE | 2020-04-26 13:00 | NUR ---
PATIENT IS ALERT, CALM AND COOPERATIVE AFTER HAVING PERIODS OF SLEEP. NOT PULLING AT MEDICAL DEVICES, RESTRAINTS REMOVED AND PATIENT EDUCATED ON NEED TO KEEP PRESENT CHEST TUBE IN DR BOND WOULD REMOVE IT WHEN IT WAS TIME. VERBALIZED UNDERSTANDING.
--- NOTE | 2020-04-26 19:00 | NUR ---
PATIENT SLOWLY PROGRESSING TOWARDS OUTCOME GOALS. ASSISTED UP TO THE CHAIR FOR DINNER AND REMAINS THERE. ASSIST TO REPOSITION SELF BACK INTO THE CHAIR. O2 WEANED FROM 6L/HFNC TO 2L. WITH SATS IN THE MID 90'S. MONITOR NSR WITH BP IN THE 120/70 RANGE. REMAINS CALM AND COOPERATIVE. TAKING PO WITHOUT NAUSEA. HAS NOT VOIDED SINCE ISMAEL WAS DC'D AT 1420. PAIN MANAGED WITH TYLENOL TODAY. WILL CONTINUE TO MONITOR.
[2020-04-27] VITALS (24 sets, daily range): BP systolic 113–147; BP diastolic 52–102
--- NOTE | 2020-04-27 06:29 | NUR ---
A/O X 3.NO AGITATION THIS SHIFT.VOIDED USING THE URINAL WITH ADEQUATE AMOUNT OF URINE.NO BM YET.TYLENOL GIVEN FOR GENERALIZED PAIN.INCENTIVE SPIROMETER ENCOURAGED.AFEBRILE.STERNAL DRESSING C/D/I.PACERWIRES CAPPED AND INTACT.MONITOR SHOWS SR/SA.POC CONTINUED.
--- NOTE | 2020-04-27 08:31 | NUR ---
ALERT AND ORIENTED, C/O SORENESS AT CHEST TUBE SITE BUT OTHERWISE STATES NO PAIN. VITALS STABLE. UP TO CHAIR WITH ONE PERSON ASSIST USING GAIT BELT. LEFT PLEURAL CHEST TUBE NOTED. PACER WIRES PRESENT AND CAPPED, CECE VAC WITH STERNAL DRESSING INTACT. ORIGINAL POST OP DRESSINGS ON LLE, SCDs BLE WHEN IN BED. DENIES NAUSEA AND ABLE TO VOID PER URINAL. PROGRESSING WELL TOWARD POC GOALS.
--- NOTE | 2020-04-27 08:40 | NUR ---
Nutrition: Pt S/P CABG x 5. Consult received. Will followup to address education needs when out of ICU/closer to D/C.
[2020-04-27 10:27] LABS: POC BE -3 mmol/L (-2.0 to +3.0); POC CA IONIZED 4.4 mg/dL (4.5-5.3); POC GLUCOSE 160 mg/dL (70-99); POC HCO3 22.2 mmol/L (22.0-26.0); POC HEMOGLOBIN 10.9 g/dL (14.0-18.0); POC SODIUM 138 mmol/L (136-145); POC pCO2 39.8 mmHg (35.0-45.0); POC pH 7.355 (7.360-7.450)
--- NOTE | 2020-04-27 12:47 | NUR ---
CT AND PACER WIRED DC'D BY MARILEE.
--- NOTE | 2020-04-27 16:29 | NUR ---
INITIAL ASSESSMENT: Received consult for discharge planning. MICHEL reviewed chart. Pt is s/p CABG x 5. Pt is in ICU and may transfer out later today to CCU. MICHEL spoke with pt's , Marguerite, via phone. Introduced role of SW. Pt is normally alert/orientated x 4. Pt and spouse live at home. 3 steps to enter and have 15 steps up to the bedroom on the second floor. Prior to admission, pt was independent with ADLs. No use of DME. No hx of HH services or post-acute placement. Pt has used home IV abx in the past. Pt's PCP is Dr. Praveena Ramirez. Pt's states that pt can sleep in recliner on ground level upon discharge. SW discussed discharge needs: HH services for outpatient. Pt's would prefer HH services. SW confirmed home address and phone number. Options discussed for HH agencies. No preference voiced. MICHEL faxed referral to [facility] for review. Notified HH liaison of new referral. Awaiting insurance verification. MICHEL is following to assist as needed with discharge planning.
[2020-04-28] VITALS (7 sets, daily range): BP systolic 127–155; BP diastolic 65–73
--- NOTE | 2020-04-28 01:36 | NUR ---
PATIENT ALERT AND ORIENTED X4, PAIN MILDLY CONTROLLED WITH MEDICATION. ON ROOM AIR, O2 SAT REMAINS ABOVE 90%. NON-PRODUCTIVE COUGH, PATIENT ACTIVELY DOES INCENTIVE SPIROMETER INDEPENDENTLY WITH THE GOAL RATE OF 3.0L. ADHERING TO FLUID RESTRICTION. CECE DRESSING INTACT. SCDS ON. PATIENT VOIDS INDEPENDENTLY WITH NO ISSUES. PATIENT STATES HE WILL NOTIFY AND SON ON TRANSFER OUT OF ICU. REPORT GIVEN TO ONCOMING RN, NO SIGN OF ACUTE DISTRESS NOTED AT THIS TIME. PATIENT TRANSFERRED TO ROOM 210 CCU AT 0125 ON 04/28/20.
[2020-04-28 05:37] LABS: HEMATOCRIT 35.8 % (42.0-52.0); HEMOGLOBIN 11.8 gm/dL (14.0-18.0); MCH 30.3 pg (26.0-34.0); MCHC 32.9 g/dL (28.0-37.0); MCV 92.2 fL (80.0-100.0); RBC 3.88 mil/uL (4.50-6.00); RDW 14.3 % (10.5-14.5)
[2020-04-28 05:50] LABS: CALCIUM 8.4 mg/dL (8.5-10.1); POTASSIUM 3.9 mmol/L (3.5-5.1)
--- NOTE | 2020-04-28 05:57 | NUR ---
RECEIVED PATIENT AT A TRANSFER FROM ICU AT APPROXIMATELY 0200. PATIENT IN STABLE CONDITION. UPON ASSESSMENT, PATIENT REPORTED PAIN IN RIGHT SHOULDER AND STATED THAT IT IS CHRONIC PAIN FROM A ROTATOR CUFF ISSUE. PATIENT STATED THAT HE DOESN'T TAKE NARCOTICS DUE TO A "PSYCHOTIC" EPISODE HE HAD IN ICU AND PREFERS TO TAKE TYLENOL REGULARLY TO STAY ON TOP OF PAIN. PATIENT ALSO REPORTED BILATERAL RIB PAIN THAT IS EXACERBATED BY DEEP BREATH. THIS IS RELATED TO RECENT CABG X5. PATIENT HAS INCENTIVE SPIROMETER AT BEDSIDE AND IS CONSISTENT WITH USE. PATIENT APPEARS TO BE PROGRESSING TOWARDS GOALS.
--- NOTE | 2020-04-28 13:13 | NUR ---
REFERRAL FAXED TO [facility] SPOKE WITH [facility] IN INTAKE THEY CAN ACCEPT AT [place]. DP TO FOLLOW.
[2020-04-28] MEDS ORDERED: FERREX 150 PLU1 EAC1 PO (13:43)
--- NOTE | 2020-04-28 17:50 | NUR ---
PT CARE ASSUMED APPROX 0700. ASSESSMENTS CHARTED. PT DENIES SOA. REPORTS ADEQUATE PAIN MANAGEMENT TO STERNUM. VSS. MOTIVATED TO MOBILIZE AND USE I.S. PT TOLERATING POC. CECE DSG CHANGED PER ORDER AFTER PT SHOWER. LLE INCISIONS APARTMENT LEASING MANAGER AND C/D/I. NO DISTRESS NOTED.
[2020-04-29 04:00] VITALS: BP 154/81
--- NOTE | 2020-04-29 05:27 | NUR ---
ASSUMED CARE OF PATIENT AT 1900. PATIENT REQUESTED TYLENOL THROUGHOUT NIGHT FOR CHRONIC RIGHT SHOULDER PAIN AND DISCOMFORT AROUND IV SITE. ADMINISTERED PRN TYLENOL ORDERED. PATIENT CONTINUES TO BE COMPLIANT WITH INCENTIVE SPIROMETRY, OBTAINING 2250. PATIENT HAS A DRY COUGH AND REPORTS IRRITATION AND STATES "HIS THROAT FEELS RAW." PATIENT IS EXPECTED TO DISCHARGE TODAY. PATIENT WAS OFFERED A CHANCE TO D/C YESTERDAY BUT STATED HIS STILL NEEDED TO GET THINGS READY AT HOME, BUT HE IS READY TO GO HOME TODAY. PATIENT IS PROGRESSING WELL TOWARDS GOALS.
--- NOTE | 2020-04-29 07:56 | EKG ---
[facility] [place] [address] ELECTROCARDIOGRAM REPORT Name: CARYN CALERO Room #: 210-P ADM IN M.R.#: [id number] Admission: 04/24/20 Attend Phys: Caryn Alejandro MD Discharge: Date of : 50 Report #: [id number] THIS REPORT FOR: cc: BRENNAN FARNSWORTH Physician not on staff Bib Meeks MD [facility] ~ THIS REPORT FOR: //name// [facility] Test Date: 2020-04-28 Test Time: 08:38:30 Pat Name: CARYN CALERO Department: Room: 210 Gender: M Business Unit Leader: Cecilio DUVAL : 1950 Requested By: Caryn Alejandro Order Number: [id number] MD: Bib Meeks Measurements Intervals [place] Rate: 82 P: 63 [place]: 157 QRS: 47 QRSD: 95 T: -8 QT: 416 QTc: 486 Interpretive Statements Sinus rhythm Atrial premature complex Inferior infarct, old Compared to ECG 04/25/2020 07:33:04 Atrial premature complex(es) now present Electronically Signed On 04-29-2020 7:54:07 CDT by Bib Meeks [email or web address] <ELECTRONICALLY SIGNED> By: Bib Meeks MD, [facility] 04/29/20 0754 [id number] Bib Meeks MD, [facility] /EPI
[2020-04-29] MEDS ORDERED: PACERONE 200 M200 M1 PO (08:14)
[2020-04-29] MEDS ORDERED: BENICAR20 MG PO (08:14)
[2020-04-29 08:18] VITALS: BP 138/66
[2020-04-29 09:51] VITALS: BP 127/65
[2020-04-29 09:57] VITALS: BP 127/65
[2020-04-29 10:44] VITALS: BP 127/65
--- NOTE | 2020-04-29 10:50 | NUR ---
PT DISCHARGING TODAY TO [facility] DC ORDERS/SUMMARY SPOKE WITH CHANTAL IN INTAKE SHE RECEIVED ORDERS AND WILL NOTIFY PT TIME OF VISITS.
--- NOTE | 2020-04-29 12:04 | NUR ---
PT CARE ASSUMED APPROX 0700. ASSESSMENT CHARTED. PT DENIES PAIN AND SOA AT THIS TIME. VSS. UP WITH STEADY GAIT. CECE DSG REINFORCED AT THIS TIME. LLE INCISION C/D/I. PT DISCHARGING. DISCHARGE EDUCATION REVIEWED WITH PT BY MEDICAL TEAM, REINFORCED BY THIS NURSE. PT DENIES QUESTIONS OR CONCERNS REGARDING POST HOSPITAL CARES AND F/U. IV OUT, TELE OFF. ESCORTED OFF THE UNIT AT THIS TIME BY HOSPITAL STAFF.
== END 2020-04-29 12:05 | disposition home health service (06) | DRG 235 ==
LOC: PRE 10:47 → TBA 04-24 06:33 → ICU 04-24 06:33 → PRE 04-24 09:58 → ICU 04-24 14:22 → PRE 04-24 15:37 → 2N 04-28 01:39
PROVIDERS: Physician Assistant; ADMIT Surgery Vascular Surgery; ATTEND Surgery Vascular Surgery
PROC: 02100Z9 Bypass Coronary Artery, One Artery from Left Internal Mammary, Open Approach (ICD-10-PCS; principal; 2020-04-24)
PROC: 021309W Bypass Coronary Artery, Four or More Arteries from Aorta with Autologous Venous Tissue, Open Approach (ICD-10-PCS; principal; 2020-04-24)
PROC: 5A1221Z Performance of Cardiac Output, Continuous (ICD-10-PCS; principal; 2020-04-24)
PROC: 05HY33Z Insertion of Infusion Device into Upper Vein, Percutaneous Approach (ICD-10-PCS; principal; 2020-04-24)
PROC: 06BQ4ZZ Excision of Left Saphenous Vein, Percutaneous Endoscopic Approach (ICD-10-PCS; principal; 2020-04-24)
DX: I25.10 Atherosclerotic heart disease of native coronary artery without angina pectoris (principal); N17.0 Acute kidney failure with tubular necrosis; G92 Toxic encephalopathy; D62 Acute posthemorrhagic anemia; E78.5 Hyperlipidemia, unspecified; E03.9 Hypothyroidism, unspecified; I65.23 Occlusion and stenosis of bilateral carotid arteries; E11.51 Type 2 diabetes mellitus with diabetic peripheral angiopathy without gangrene; R41.0 Disorientation, unspecified; Z20.828 Contact with and (suspected) exposure to other viral communicable diseases; I10 Essential (primary) hypertension; Z88.8 Allergy status to other drugs, medicaments and biological substances; Z91.041 Radiographic dye allergy status; Z79.82 Long term (current) use of aspirin; Z79.899 Other long term (current) drug therapy; Z82.49 Family history of ischemic heart disease and other diseases of the circulatory system; Z95.820 Peripheral vascular angioplasty status with implants and grafts; Z87.891 Personal history of nicotine dependence
CPT/HCPCS: 10078; 10081; 47000; 47001; 47002; 47297; 48888; 50010; 50249; 50409; 50456; 50498; 50668; 51301; 52131; 52259; 52287; 52314; 53327; 53358; 54118; 56455; 56524; 56525; 56526; 56527; 56528; 56531; 56534; 56668; 56719; 56760; 56898; 57093; 57116; 57167; 62110; 62950; 65003; 65020; 65047; 65090; 65120; 65131; 65135

== ENCOUNTER → 2020-05-26 | Outpatient (CLI) | payer OTHER ==
[~2020-05-26] MED LIST changes: +BENICAR20 MG PO; +FERREX 150 PLU1 EAC1 PO; +PACERONE 200 M200 M1 PO
== END ==
LOC: SJCVCIMAG 10:32
PROVIDERS: ATTEND Internal Medicine Cardiovascular Disease
DX: I73.9 Peripheral vascular disease, unspecified (principal); I25.810 Atherosclerosis of coronary artery bypass graft(s) without angina pectoris; E78.00 Pure hypercholesterolemia, unspecified; E11.9 Type 2 diabetes mellitus without complications; I10 Essential (primary) hypertension; E78.5 Hyperlipidemia, unspecified; Z82.49 Family history of ischemic heart disease and other diseases of the circulatory system; Z79.4 Long term (current) use of insulin; Z95.1 Presence of aortocoronary bypass graft; Z79.899 Other long term (current) drug therapy; Z87.891 Personal history of nicotine dependence; Z95.820 Peripheral vascular angioplasty status with implants and grafts; Z79.82 Long term (current) use of aspirin

== ENCOUNTER → 2020-09-03 | Outpatient (CLI) | payer OTHER | LOC: SJCVCIMAG 08-18 07:00 | PROVIDERS: ATTEND Internal Medicine Cardiovascular Disease | DX: I34.0 Nonrheumatic mitral (valve) insufficiency (principal); I25.10 Atherosclerotic heart disease of native coronary artery without angina pectoris; I10 Essential (primary) hypertension; E11.9 Type 2 diabetes mellitus without complications; Z95.1 Presence of aortocoronary bypass graft; Z79.4 Long term (current) use of insulin; Z79.899 Other long term (current) drug therapy; Z87.891 Personal history of nicotine dependence ==

== ENCOUNTER → 2020-11-24 | Outpatient (CLI) | payer OTHER | LOC: SJCVCIMAG 07:58 | PROVIDERS: ATTEND Nuclear Medicine Nuclear Cardiology | DX: I65.23 Occlusion and stenosis of bilateral carotid arteries (principal); I70.201 Unspecified atherosclerosis of native arteries of extremities, right leg; I77.9 Disorder of arteries and arterioles, unspecified; I25.10 Atherosclerotic heart disease of native coronary artery without angina pectoris; I10 Essential (primary) hypertension; E11.9 Type 2 diabetes mellitus without complications; Z79.4 Long term (current) use of insulin; Z95.828 Presence of other vascular implants and grafts; Z95.1 Presence of aortocoronary bypass graft; Z79.82 Long term (current) use of aspirin; Z79.899 Other long term (current) drug therapy; Z87.891 Personal history of nicotine dependence ==

== ENCOUNTER → 2021-05-20 | Outpatient (CLI) | payer OTHER | LOC: SJCVCIMAG 09:16 | PROVIDERS: ATTEND Internal Medicine Cardiovascular Disease | DX: I70.201 Unspecified atherosclerosis of native arteries of extremities, right leg (principal); R94.31 Abnormal electrocardiogram [ECG] [EKG]; I25.10 Atherosclerotic heart disease of native coronary artery without angina pectoris; I77.9 Disorder of arteries and arterioles, unspecified; I10 Essential (primary) hypertension; E78.00 Pure hypercholesterolemia, unspecified; E11.51 Type 2 diabetes mellitus with diabetic peripheral angiopathy without gangrene; Z95.820 Peripheral vascular angioplasty status with implants and grafts; Z95.1 Presence of aortocoronary bypass graft; Z98.890 Other specified postprocedural states; Z88.8 Allergy status to other drugs, medicaments and biological substances; Z79.82 Long term (current) use of aspirin; Z79.4 Long term (current) use of insulin; Z79.899 Other long term (current) drug therapy; Z87.891 Personal history of nicotine dependence; Z82.49 Family history of ischemic heart disease and other diseases of the circulatory system ==

== ENCOUNTER → 2021-09-30 | Outpatient (CLI) | payer OTHER | LOC: SJCVCIMAG 07:48 → SJCVC 11:54 | PROVIDERS: ATTEND Internal Medicine Cardiovascular Disease | DX: I70.203 Unspecified atherosclerosis of native arteries of extremities, bilateral legs (principal); I25.10 Atherosclerotic heart disease of native coronary artery without angina pectoris; I10 Essential (primary) hypertension; E78.00 Pure hypercholesterolemia, unspecified; E11.9 Type 2 diabetes mellitus without complications; I77.9 Disorder of arteries and arterioles, unspecified; K21.9 Gastro-esophageal reflux disease without esophagitis; F41.1 Generalized anxiety disorder; Z95.1 Presence of aortocoronary bypass graft; Z79.82 Long term (current) use of aspirin; Z79.4 Long term (current) use of insulin; Z79.899 Other long term (current) drug therapy ==